=== PATIENT | male | born 1950 | race Asian ===

== ENCOUNTER 2019-07-06 20:27 | Inpatient (IN) | payer MEDICARE, OTHER ==
[~2019-07-06] VITALS: Ht 165.1 cm; Wt 67.6 kg
--- NOTE | 2019-07-06 20:45 | NUR ---
DAUGHTER: NELY GARCIA: [phone]
--- NOTE | 2019-07-06 20:57 | NUR ---
ARIELLE FROM HOME TO ER BED 7. AAOX3. IN RESPM DISTRESS, BREATHING RAPID AND SHALLOW. DESAT @ 70S ON RA. PER EMS REPORT, PT WAS BEING WALKED TO THE BATHROOM WHE HE HAD A SYNCOPAL EPISODE FOR 15SEC. PER REPORT, PT IS LEAVING WITH PEOPLE WHO ARE SICK WELL. PT IS PRESENTED TACHYPNEAC AND TACHYCARDIC. NOTED WITH COUGH. PLACED ON 02 VIA NC @ 6LPM. WAS AT BEDSIDE FOR EVAL. ORDERS RECEIVED, NOTED AND CARRIED OUT. IV LINE OBTAINED ON THE R AC 20G. BLOOD DRAWN, URINE COLLECTED BY STRAIGHT CATH, RECTAL TEMP 99.0. WILL CONTINUE TO MONITOR PT
[2019-07-06 20:58] LABS: APPEARANCE,URINE Slightly Cloudy (CLEAR); BILIRUBIN,URINE Negative (NEGATIVE); BLOOD, URINE Trace-intact Ery/uL (NEGATIVE); COLOR,URINE Yellow (YELLOW); KETONES,URINE Trace (NEGATIVE); LEUKOCYTE ESTERASE ,URINE Negative (NEGATIVE); NITRITE, URINE Negative (NEGATIVE); PROTEIN,URINE 100 mg/dl (NEGATIVE); UGLUCOSE 500 MG/DL mg/dL (NEGATIVE)
[2019-07-06] MEDS ORDERED: IV NS 0.9% 1,000 ML BAG IV ONE ×2 (21:00→22:00)
[2019-07-06] MEDS ORDERED: ACETAMINOPHEN 650 MG/SUPP.RECT RC ONE ×2 (21:00→21:17)
[2019-07-06] MEDS ORDERED: CEFTRIAXONE 1GM BAG (ER ONLY) 1 GM/50 ML PIGGYBACK IV ONE (21:00)
[2019-07-06] MEDS ORDERED: AZITHROMYCIN 500 MG in IV D5W 250 ML IV ONE (21:00)
[2019-07-06 21:08] LABS: CALCIUM, SERUM 8.6 mg/dL (8.5-10.1); CARBON DIOXIDE 19 mmol/L (21-32); CHLORIDE 98 mmol/L (98-107); CREATININE 1.9 mg/dL (0.6-1.3); GLUCOSE 251 mg/dL (74-106); POTASSIUM 4.4 mmol/L (3.5-5.1); SODIUM SERUM 137 mmol/L (136-145); UREA NITROGEN, BLOOD 44 mg/dL (7-18)
[2019-07-06 21:11] LABS: BACTERIA,URINE Moderate /HPF (None Seen); BASOPHILS # (AUTO) 0.1 /CMM (0.0-0.2); BASOPHILS % (AUTO) 0.4 % (0.0-2.0); HEMATOCRIT 53 % (39-51); HEMOGLOBIN 17.3 g/dL (13.5-17.5); LYMPHOCYTES # (AUTO) 0.5 /CMM (0.8-4.8); LYMPHOCYTES % (AUTO) 3.3 % (20.0-44.0); MEAN CORPUSCULAR HGB CONC 32 g/dl (31.0-36.0); MEAN CORPUSCULAR VOLUME 100 fL (80-96); MONOCYTES # (AUTO) 0.4 /CMM (0.1-1.30); MONOCYTES % (AUTO) 3.1 % (2.0-12.0); NEUTROPHILS # (AUTO) 13.3 /CMM (1.8-8.9); NEUTROPHILS % (AUTO) 93.2 % (43.0-81.0); PLATELET COUNT (AUTO) 165 /CMM (150-450); RBC,URINE 0-2 /HPF (0-2); RED BLOOD CELL COUNT(AUTO) 5.34 MIL/uL (4.5-6.0); SQUAMOUS EPITHELIAL CELL,UR Few /HPF (None Seen); WBC,URINE 0-2 /HPF (0-3); WHITE BLOOD COUNT (AUTO) 14.3 K/uL (4.3-11.0)
[2019-07-06 21:12] LABS: URINE AMORPHOUS URATE Many /HPF (None Seen)
[2019-07-06 21:14] LABS: ALANINE AMINOTRANSFERASE 84 U/L (12-78); ALBUMIN 2.6 g/dL (3.4-5.0); ALKALINE PHOSPHATASE 92 U/L (46-116); ASPARTATE AMINOTRANSFERASE 136 U/L (15-37); BILIRUBIN,DIRECT 0.5 mg/dL (0.0-0.2); BILIRUBIN,TOTAL 1.2 mg/dL (0.2-1.0); TOTAL PROTEIN, SERUM 6.8 g/dL (6.4-8.2)
[2019-07-06] MEDS ORDERED: AZITHROMYCIN 500 MG VIAL ONE (21:17)
[2019-07-06] MEDS ORDERED: CEFTRIAXONE 1GM BAG (ER ONLY) 50 ML IV ONE (21:17)
--- NOTE | 2019-07-06 21:40 | NUR ---
COVID AND FLU SWAB DONE. RT AT BEDSIDE FOR ABG
--- NOTE | 2019-07-06 21:57 | NUR ---
ICU 264
[2019-07-06] MEDS ORDERED: DILTIAZEM HCL 50 MG IV IV ONE (22:00)
[2019-07-06] MEDS ORDERED: PROPOFOL 20 ML IV ONE ×2 (22:14→22:16)
--- NOTE | 2019-07-06 22:30 | NUR ---
CHEST TUBE INSERTED BY DR.NEWMAN NEWTON 28. CHEST TUBE SET UP COMPLETE, NO LEAK NOTED.
--- NOTE | 2019-07-06 22:35 | NUR ---
ENTUBATION SET UP RT, RN AND MD AT BEDSIDE.
--- NOTE | 2019-07-06 22:36 | NUR ---
INTUBATION DONE BY . ET TUBE SIZE 8, 23 AT THE LIP, POSITIVE COLOR CHANGED.
--- NOTE | 2019-07-06 22:37 | NUR ---
VENT SETTING AC 22 VT500 100% +5PEEP
[2019-07-06] MEDS: PROPOFOL 100 ML IV PRN ×5 (22:40→23:55)
--- NOTE | 2019-07-06 22:45 | NUR ---
COMMERCIAL AIRPLANE PILOT AT BEDSIDE FOR STAT XRAY.
--- NOTE | 2019-07-06 22:48 | NUR ---
NELY SLOANP- DAUGHTER [phone] PLEASE CALL WITH UPDATES
[2019-07-06] MEDS ORDERED: PROPOFOL 100 ML ONE (22:49)
--- NOTE | 2019-07-06 23:04 | NUR ---
RT pt intubated post chest tube insertion due to desaturation. 8.0 ett, 23@lip. bilateral chest rise. vent settings: AC 22 500 100% +5
[2019-07-06] MEDS ORDERED: DILTIAZEM HCL 25 MG IV ONE (23:17)
[2019-07-06] MEDS ORDERED: PROPOFOL 200 MG/20 ML VIAL IV ONE ×2 (23:30)
[2019-07-06] MEDS ORDERED: MAGNESIUM HYDROXIDE 30 ML UDC PO PRN (23:30)
[2019-07-06] MEDS ORDERED: MAG HYDROX/AL HYDROX/SIMETH 30 ML UDC PO PRN (23:30)
[2019-07-06] MEDS ORDERED: Z GUARD REMEDY 2 OZ OINT TP PRN (23:30)
[2019-07-06] MEDS ORDERED: ONDANSETRON HCL/PF 4 MG/2 ML VIAL IVP PRN (23:30)
--- NOTE | 2019-07-06 23:50 | NUR ---
SPOKE WITH LISA MCKAY FOR UPDATES ABOUT HIS FATHER.
[2019-07-07] VITALS (45 sets, daily range): BP systolic 93–145; BP diastolic 43–96
--- NOTE | 2019-07-07 00:25 | NUR ---
SPOKE WITH SALINAS MOROCHO NP. PT IS ON PROPOFOL 25MCG/MIN AND BP IS 77/50. RECEIVED VERBAL ORDER TO GIVE NS 500ML IV BOLUS X 1.
[2019-07-07] MEDS ORDERED: IV NS 0.9% 500 ML BAG IV ONE (00:30)
[2019-07-07 00:54] LABS: ABG BASE EXCESS -5.8 mmol/L; ABG OXYGEN SATURATION 73.9 % (92.0-98.5); ABG PCO2 39.4 mmHg (35.0-45.0); ABG PO2 45.9 mmHg (75.0-100.0); AaDO2 627.7 mmHg; COHb 0.8 % (0.5-1.5); MetHb 0.7 % (0.0-1.5); O2Hb 72.8 % (94.0-97.0); SITE, ABG Left Brachial; VENT MODE, BG AC 22 500 100% +5
[2019-07-07 01:26] LABS: C-REACTIVE PROTEIN 26.5 mg/dL (0.0-0.9)
--- NOTE | 2019-07-07 01:27 | NUR ---
REPORT GIVEN TO EDUARD PALACIO FOR MIHIR.
--- NOTE | 2019-07-07 01:50 | NUR ---
ICU/MACHINE PLASTER MIXER PT CAME FROM ER WITH SEDATION AT 20MCG, VENT WITH SATURATION AT 69-70%, AND CHEST TUBE CLAMP.
--- NOTE | 2019-07-07 02:03 | NUR ---
PT TRANSPORTED TO UNIT ON [facility] WITH EMT, RT AND RN AT BEDSIDE W/ ACLS PROTOCOL. NAD NOTED DURING TRANSPORT.
[2019-07-07] MEDS: IV NS 0.9% 1,000 ML IV PRN ×3 (02:18→21:00)
--- NOTE | 2019-07-07 02:30 | NUR ---
ICU/MARKETING OFFICER CHEST TUBE IS NOT BUBBLING, CHEST TUBE CHANGED OUT BY CHARGE NURSE. WILL MONITOR THIS PT. SATURATION IS 78%
[2019-07-07 03:00] LABS: ABG BASE EXCESS -4.6 mmol/L; ABG OXYGEN SATURATION 76.5 % (92.0-98.5); ABG PCO2 36.8 mmHg (35.0-45.0); ABG PH 7.357 (7.350-7.450); ABG PO2 46.5 mmHg (75.0-100.0); AaDO2 629.7 mmHg; COHb 0.7 % (0.5-1.5); MetHb 0.5 % (0.0-1.5); O2Hb 75.6 % (94.0-97.0); SITE, ABG Left Brachial; VENT MODE, BG AC 22 500 100% +5
--- NOTE | 2019-07-07 03:00 | NUR ---
ICU/HOMELAND SECURITY PROGRAM SPECIALIST STAT ABG & CHEST XRAY DUE TO LOW SATURATION.
[2019-07-07] MEDS: PROPOFOL 100 ML IV PRN ×5 (03:56→23:01)
--- NOTE | 2019-07-07 04:30 | NUR ---
ICU/FINANCIAL PLANNING CONSULTANT ABG SENT TO [facility], CAME TO SEE PT. NO NEW ORDERS. ALSO MADE AWARE OF PT IS AFIB. GAVE ORDER FOR CARDIZEM X1 NOW.
[2019-07-07] MEDS ORDERED: DILTIAZEM HCL 50 MG IV IV ONE (05:00)
[2019-07-07 05:09] LABS: BASOPHILS % (AUTO) 0.1 % (0.0-2.0); HEMATOCRIT 47 % (39-51); HEMOGLOBIN 15.7 g/dL (13.5-17.5); LYMPHOCYTES # (AUTO) 0.5 /CMM (0.8-4.8); LYMPHOCYTES % (AUTO) 4.8 % (20.0-44.0); MEAN CORPUSCULAR HGB CONC 33 g/dl (31.0-36.0); MEAN CORPUSCULAR VOLUME 99 fL (80-96); MONOCYTES # (AUTO) 0.4 /CMM (0.1-1.30); MONOCYTES % (AUTO) 3.3 % (2.0-12.0); NEUTROPHILS % (AUTO) 91.8 % (43.0-81.0); PLATELET COUNT (AUTO) 115 /CMM (150-450); RED BLOOD CELL COUNT(AUTO) 4.77 MIL/uL (4.5-6.0); WHITE BLOOD COUNT (AUTO) 10.9 K/uL (4.3-11.0)
--- NOTE | 2019-07-07 05:10 | NUR ---
ICU/FOOD PRODUCTION MACHINE OPERATOR CARDIZEM GIVEN, WILL MONITOR THIS PT. HEART RATE IS 140'S TO 150'S.
--- NOTE | 2019-07-07 05:34 | NUR ---
ICU/CEILING INSULATION BLOWER PT IS VERY ALERT ON 30MCG OF SEDATION, AM LABS WERE DONE, AND EKG DONE TOO
[2019-07-07 05:39] LABS: CALCIUM, SERUM 7.7 mg/dL (8.5-10.1); MAGNESIUM 2.7 mg/dL (1.8-2.4); PHOSPHORUS 4.8 mg/dL (2.5-4.9); POTASSIUM 4.1 mmol/L (3.5-5.1)
[2019-07-07 05:46] LABS: THYROID STIMULATING HORMONE 0.336 uIU/mL (0.358-3.74)
--- NOTE | 2019-07-07 07:20 | NUR ---
RN INITIAL NOTES RECEIVED PT INTUBATED, ON VENT. HOB ELEVATED. 02 SAT ON LOW 70-80S. FIO2 100%. UNCONTROLLED A.FIB ON MONITOR, 140S. SALINAS MOROCHO NP AWARE. PT SEDATED, ON DIPRIVAN AT 35MCG/KG/MIN, MINIMAL AGITATION NOTED, INCREASED TO 40MCG/KG/MIN. IV LINES IN PLACE. IVF INFUSING. LEFT CHEST TUBE IN PLACE. NO DRAINAGE NOTED AT THIS TIME. FC IN PLACE. NO HEMATURIA NOTED. REPOSITIONED. WILL CONTINUE TO MONITOR.
--- NOTE | 2019-07-07 07:50 | NUR ---
icu/gallery or museum attendant sent to lab the covid-19 test, resp. culture, and influenza.
[2019-07-07 08:35] LABS: ABG BASE EXCESS -7.6 mmol/L; ABG OXYGEN SATURATION 83.4 % (92.0-98.5); ABG PCO2 37.4 mmHg (35.0-45.0); ABG PH 7.302 (7.350-7.450); ABG PO2 57.5 mmHg (75.0-100.0); AaDO2 618.1 mmHg; COHb 0.4 % (0.5-1.5); MetHb 0.4 % (0.0-1.5); O2Hb 82.7 % (94.0-97.0); PEEP,BG 5 cm H2O; SITE, ABG Left Brachial; VENT MODE, BG AC 22 500 100% +5
[2019-07-07] MEDS ORDERED: MONT10TA22 PO (09:03)
[2019-07-07] MEDS ORDERED: ASPI-1152 PO (09:03)
[2019-07-07] MEDS ORDERED: OLOP5DRO15 OP (09:03)
[2019-07-07] MEDS ORDERED: EMPA1TAB24 PO (09:03)
[2019-07-07] MEDS ORDERED: AMLO5TAB9 PO (09:03)
[2019-07-07] MEDS ORDERED: LOSA100T31 PO (09:03)
[2019-07-07] MEDS ORDERED: HYDR12.55 PO (09:03)
[2019-07-07] MEDS ORDERED: ICOS1CAP PO (09:03)
[2019-07-07] MEDS ORDERED: ATOR10TA PO (09:03)
[2019-07-07] MEDS ORDERED: CHOL200059 PO (09:03)
[2019-07-07] MEDS ORDERED: LEVO5TAB13 PO (09:03)
--- NOTE | 2019-07-07 11:00 | NUR ---
RN NOTES 1030 SEEN AND EXAMINED BY DR GARNICA. AWARE OF LATEST LAB VALUES, ABG AND CXR RESULT. PT HAS LEFT CHEST TUBE, SUBCUTANEOUS EMPHYSEMA PRESENT. PT SEDATED, ON DIPRIVAN. ORDERED VENT SETTINGS CHANGE. WILL CLOSELY MONITOR 1100 SEEN AND EXAMINED BY DR DICKERSON. AWARE OF LAB VALUES AND IMAGING STUDIES. PT REMAINS UNCONTROLLED A.FIB ON MONITOR. HAS DIGOXIN ORDER. IVF INFUSING. WILL CLOSELY MONITOR
[2019-07-07] MEDS: DIGOXIN INJ 0.5 MG/2 ML AMPUL IV SCH ×2 (11:57→17:28)
[2019-07-07 12:50] LABS: ABG OXYGEN SATURATION 93.4 % (92.0-98.5); ABG PCO2 41.2 mmHg (35.0-45.0); ABG PH 7.287 (7.350-7.450); ABG PO2 81.5 mmHg (75.0-100.0); AaDO2 590.3 mmHg; COHb 0.2 % (0.5-1.5); MetHb 0.5 % (0.0-1.5); O2Hb 92.7 % (94.0-97.0); PEEP,BG 8 cm H2O; SITE, ABG Left Brachial; VT, ABG 500 mL
[2019-07-07] MEDS: HYDROXYCHLOROQUINE 200 MG TABLET PO SCH ×2 (13:17→16:45)
--- NOTE | 2019-07-07 18:32 | NUR ---
RN CLOSING NOTES PT REMAINS INTUBATED, ON VENT. NO RESPIRATORY DISTRESS NOTED. NO SOB NOTED. NO SIGNS OF PAIN NOTED. PT ON DIPRIVAN, KEPT SEDATED. IVF INFUSING. FC IN PLACE. KEPT CLEAN AND DRY. REPOSITIONED Q2. BLE ELEVATED. WILL ENDORSE FOR CONTINUITY OF CARE
--- NOTE | 2019-07-07 19:45 | NUR ---
ICU/WIRE MESH KNITTER REPORT RECEIVED FROM THE TO DAY NURSE. SEE FLOWSHEET FOR ASSESSMENT, NO SKIN ISSUES TO BE ADDRESSED. PT IS ON SEDATION AT THIS TIME DUE TO INTUBATION. PT IS ORALLY INTUBATED WITH SATURATION AT 100%. WILL MONITOR THIS PT. PT TURNED AND REPOSITIONED FOR COMFORT AND CARE.PT HAS A CHEST TUBE WITH WATER SEAL, TAPE IS SECURE.
--- NOTE | 2019-07-07 20:02 | NUR ---
RT NOTE PT RECEIVED INTUBATED 8.0 ON MECHANICAL VENTILATION. 23 AT [facility]. AMBU BAG @ BEDSIDE. SX DONE, MINIMAL SECRETIONS, AIRWAY SECURED AND PATENT. ALARMS ON AND AUDIBLE. NO DISTRESS NOTED. WILL MONITOR T/O SHIFT. CONT. PULSE OX CONNECTED. Addendum: 07/07/19 at 2002 by ZAINA CHAN RT Amended: Links added.
[2019-07-07] MEDS: CEFTRIAXONE 1 G in IV D5W 50 ML IV SCH (20:55)
[2019-07-07] MEDS: AZITHROMYCIN 500 MG in IV D5W 250 ML IV SCH (21:46)
--- NOTE | 2019-07-07 22:30 | NUR ---
ICU/EMERGENCY RESPONSE OFFICER SON KAIDEN ZELAYA [phone] CALLED GAVE UPDATE.
[2019-07-08] VITALS (63 sets, daily range): BP systolic 78–147; BP diastolic 54–79
--- NOTE | 2019-07-08 00:45 | NUR ---
ICU/AIRCRAFT CLEANER PT WAS GIVEN LAST DOSE OF DIGOXIN, BY CHARGE NURSE. WILL MONITOR THIS PT AND HIS BLOOD PRESSURE
[2019-07-08] MEDS: DIGOXIN INJ 0.5 MG/2 ML AMPUL IV SCH (00:58)
--- NOTE | 2019-07-08 04:00 | NUR ---
ICU/SITECORE DEVELOPER AM LABS WERE DRAWN.
[2019-07-08 04:26] LABS: BASOPHILS % (AUTO) 0.1 % (0.0-2.0); HEMATOCRIT 47 % (39-51); HEMOGLOBIN 15.2 g/dL (13.5-17.5); LYMPHOCYTES # (AUTO) 0.3 /CMM (0.8-4.8); LYMPHOCYTES % (AUTO) 2.5 % (20.0-44.0); MEAN CORPUSCULAR HGB CONC 33 g/dl (31.0-36.0); MEAN CORPUSCULAR VOLUME 99 fL (80-96); MONOCYTES # (AUTO) 0.5 /CMM (0.1-1.30); MONOCYTES % (AUTO) 3.8 % (2.0-12.0); NEUTROPHILS # (AUTO) 11.2 /CMM (1.8-8.9); NEUTROPHILS % (AUTO) 93.6 % (43.0-81.0); PLATELET COUNT (AUTO) 106 /CMM (150-450); RED BLOOD CELL COUNT(AUTO) 4.72 MIL/uL (4.5-6.0)
[2019-07-08 04:42] LABS: CALCIUM, SERUM 7.2 mg/dL (8.5-10.1); CREATININE 0.9 mg/dL (0.6-1.3); POTASSIUM 4.9 mmol/L (3.5-5.1)
[2019-07-08] MEDS: PROPOFOL 100 ML IV PRN ×4 (04:49→20:54)
--- NOTE | 2019-07-08 07:58 | NUR ---
TRACK LAYER NOTE RECEIVED PATIENT WITH ETT TUBE TO VENT SETTING ORDERED . PT IS ON SEDATION AT THIS TIME DUE TO INTUBATION. PT IS ORALLY INTUBATED WITH SATURATION AT 100%. WILL MONITOR THIS PT. PT TURNED AND REPOSITIONED FOR COMFORT AND CARE.PT HAS A CHEST TUBE WITH WATER SEAL, TAPE IS SECURE. WITH LANE CATH TO GRAVITY WITH YELLOW COLOR URINE, ON TELE MONITOT ST HR ST 117,ON IVF ORDERED, WILL MONITOR CLOSELY
[2019-07-08] MEDS: HYDROXYCHLOROQUINE 200 MG TABLET PO SCH (08:10)
[2019-07-08 09:06] LABS: ABG OXYGEN SATURATION 92.6 % (92.0-98.5); ABG PCO2 50.9 mmHg (35.0-45.0); ABG PH 7.231 (7.350-7.450); ABG PO2 74.6 mmHg (75.0-100.0); AaDO2 333.5 mmHg; COHb 0.6 % (0.5-1.5); MetHb 0.5 % (0.0-1.5); O2Hb 91.6 % (94.0-97.0); PEEP,BG 10 cm H2O; SITE, ABG Left Brachial; VT, ABG 500 mL
[2019-07-08] MEDS: IV NS 0.9% 1,000 ML IV PRN ×2 (09:46→20:02)
--- NOTE | 2019-07-08 10:53 | NUR ---
ASSISTANT DIRECTOR NOTE T 103.5 DR REDDY AWARE OK YO GIVE TYLENOL STARTED ON COOLING MEASURE
--- NOTE | 2019-07-08 11:20 | NUR ---
TACK MAKER NOTE DR GARNICA NOTIFIED THAT EARLIER WAS SAT 82% OK TO CHANGE FIO2 AT 80%
--- NOTE | 2019-07-08 13:17 | NUR ---
BEREAVEMENT PROGRAM COORDINATOR NOTE PER DR GARNICA ADJUSTED ETT TUBE 4 CM, DONE BY RT AND NOW SETTING IS ETT 8/27CM AND PLACED ON 70 % FIO2,SAT 94% , WILL MONITOR
--- NOTE | 2019-07-08 16:45 | NUR ---
INTERNATIONAL AFFAIRS VICE PRESIDENT NOTE CALLED TO DR GARNICA NOTIFIED THAT BP 84/45 PEEP 10 OK TO START LEVOPHED DRIP AND OK TO INSERT PICC LINE . SPOKE WITH SON KAIDEN OK TO INSERT PICC LINE ,SPOKE WITH NURSING ENTRY LEVEL WEB DEVELOPER STATED THAT WILL CALL PICC LINE TEAM, WILL F\U
--- NOTE | 2019-07-08 17:14 | NUR ---
VP PACKAGING NOTE CALLED X2 FOR LEVOPHED TO BRING SPOKE WITH MARKUS STATED THAT WILL BRING SOON
[2019-07-08] MEDS: NOREPINEPHRINE 8 MG in IV NS 0.9% 242 ML IV PRN (17:35)
--- NOTE | 2019-07-08 18:03 | NUR ---
MANAGER PACKAGING NOTE GALE STARTED ORDERED PER PROTOCOL . WILL MONITOR BP Addendum: 07/08/19 at 1848 by BRIJESH LEON RN SPOKE WITH NURSING MILK AND CREAM GRADER STATED THAT LEFT A MESSAGE FOR PICC LINE NURSE WILL F\U
[2019-07-08] MEDS: CEFTRIAXONE 1 G in IV D5W 50 ML IV SCH (20:03)
--- NOTE | 2019-07-08 20:47 | NUR ---
MANAGER BUSINESS INFORMATION NOTES: COVID 19 RESULTS CHARGE NURSE ED RECEIVED CALL FROM LAB REGARDING POSITIVE COVID-19 TEST RESULTS. LOYD FROM INFECTION CONTROL NOTIFIED, SALINAS GALICIA NOTIFIED, FAMILY MEMBER KAIDEN NOTIFIED AND MADE AWARE. WILL CONTINUE TO CLOSELY MONITOR THE PATIENT
--- NOTE | 2019-07-08 20:50 | NUR ---
DAUGHTER ENLY [phone]
[2019-07-08] MEDS: AZITHROMYCIN 500 MG in IV D5W 250 ML IV SCH (21:15)
[2019-07-09] VITALS (68 sets, daily range): BP systolic 65–198; BP diastolic 45–150
[2019-07-09] MEDS: ACETAMINOPHEN 650 MG/20.3 ML UDC NG PRN (03:00)
[2019-07-09 05:18] LABS: BASOPHILS % (AUTO) 0.1 % (0.0-2.0); HEMATOCRIT 47 % (39-51); HEMOGLOBIN 15.2 g/dL (13.5-17.5); LYMPHOCYTES # (AUTO) 0.4 /CMM (0.8-4.8); LYMPHOCYTES % (AUTO) 2.4 % (20.0-44.0); MEAN CORPUSCULAR HGB CONC 32 g/dl (31.0-36.0); MEAN CORPUSCULAR VOLUME 100 fL (80-96); MONOCYTES # (AUTO) 0.8 /CMM (0.1-1.30); MONOCYTES % (AUTO) 4.9 % (2.0-12.0); NEUTROPHILS # (AUTO) 16.1 /CMM (1.8-8.9); NEUTROPHILS % (AUTO) 92.6 % (43.0-81.0); PLATELET COUNT (AUTO) 89 /CMM (150-450); RED BLOOD CELL COUNT(AUTO) 4.72 MIL/uL (4.5-6.0); WHITE BLOOD COUNT (AUTO) 17.4 K/uL (4.3-11.0)
[2019-07-09 05:25] LABS: CALCIUM, SERUM 7.3 mg/dL (8.5-10.1); CREATININE 1.5 mg/dL (0.6-1.3); POTASSIUM 5.6 mmol/L (3.5-5.1)
[2019-07-09 05:53] LABS: LYMPHOCYTES % (MANUAL) 3 % (16-48); MONOCYTES % (MANUAL) 5 % (0-11.0); NEUTROPHILS % (MANUAL) 92 (42-76)
--- NOTE | 2019-07-09 06:30 | NUR ---
STOCK CLIPPER CLOSING NOTES PATIENT RESTING IN BED, REMAINS SEDATED ON DIPRIVAN DRIP, CURRENTLY @ 25MCG/KG/MIN. LEVOPHED DRIP CURRENTLY RUNNING @ 0.1MCG/KG/MIN VIA PERIPHERAL IV, WHICH REMAINS PATENT AND INTACT, NO S/S OF INFILTRATION OR PHLEBITIS, PENDING PICC PLACEMENT. WILL ENDORSE THE PATIENT TO THE AM SHIFT NURSE FOR CONTINUITY OF CARE
[2019-07-09] MEDS: PROPOFOL 100 ML IV PRN ×2 (06:34→15:20)
--- NOTE | 2019-07-09 07:15 | NUR ---
RN INITIAL NOTES RECEIVED PT INTUBATED, ON VENT. NO RESPIRATORY DISTRESS NOTED. NO SOB NOTED. NO SIGNS OF PAIN NOTED. OG TUBE CLAMPED. PT SEDATED, ON DIPRIVAN AT 20MCG/KG/MIN. PT ON LEVO AT 0.1MCG/KG/MIN. WILL TITRATE ACCORDINGLY. FC IN PLACE. NO HEMATURIA NOTED. BLE ELEVATED. FOR PICC INSERTION. WILL CLOSELY MONITOR
[2019-07-09] MEDS: IV NS 0.9% 1,000 ML IV PRN ×3 (07:49→15:58)
--- NOTE | 2019-07-09 08:20 | NUR ---
WOUND CARE CONSULT: RECEIVED CONSULT FOR SACRAL AND BUTTOCK DISCOLORATION WITH BLISTERING TO BUTTOCKS. REVIEWED PHOTO AND NURSING DOCUMENTATION. RECOMMENDATIONS MADE BASED ON PHOTO DOCUMENTATION AND DISCUSSED WITH NURSING STAFF. FIRST STEP LOW AIRLOSS MATTRESS ON ORDER. WILL SEE PRN. NANCE IN AGREEMENT WITH PLAN OF CARE. Addendum: 07/09/19 at 0829 by ALCIDES MCKENZIE WNDNU CURRENT KAMARI SCORE IS 12.
[2019-07-09 09:00] LABS: ABG BASE EXCESS -7.3 mmol/L; ABG OXYGEN SATURATION 96.6 % (92.0-98.5); ABG PCO2 49.4 mmHg (35.0-45.0); ABG PH 7.234 (7.350-7.450); ABG PO2 96.5 mmHg (75.0-100.0); AaDO2 349.5 mmHg; COHb 0.6 % (0.5-1.5); MetHb 0.5 % (0.0-1.5); O2Hb 95.5 % (94.0-97.0); SITE, ABG Left Radial; VENT MODE, BG AC 22 500 70% +10
[2019-07-09] MEDS: HYDROXYCHLOROQUINE 200 MG TABLET PO SCH (09:08)
--- NOTE | 2019-07-09 09:27 | NUR ---
RT NOTE PT RECEIVED ON MECHANICAL VENTILATION INTUBATED WITH ET TUBE. ALARMS ON AND AUDIBLE. VENT PLUGGED TO RED OUTLET. NO DISTRESS NOTED AT THIS TIME. WILL MONITOR T/O SHIFT. Addendum: 07/09/19 at 0928 by ANTHONY OROZCO RT Amended: Links added.
[2019-07-09] MEDS: NOREPINEPHRINE 8 MG in IV NS 0.9% 242 ML IV PRN ×3 (10:43→19:31)
[2019-07-09] MEDS ORDERED: diphenhydrAMINE HCL 50 MG/ML VIAL IV ONE (11:00)
[2019-07-09] MEDS ORDERED: ACETAMINOPHEN 650 MG/20.3 ML UDC GT ONE (11:00)
[2019-07-09] MEDS ORDERED: TOCILIZUMAB 400 MG in IV NS 0.9% 80 ML IV ONE (11:40)
[2019-07-09] MEDS ORDERED: SODIUM POLYSTYRENE SULFONATE 15 G/60 ML BOTTLE PO ONE (12:00)
[2019-07-09] MEDS ORDERED: FUROSEMIDE 100 MG/10 ML VIAL IV ONE (12:00)
--- NOTE | 2019-07-09 12:30 | NUR ---
RN NOTES SEEN AND EXAMINED BY ESTELLA YANEZ. BEEF BREAKER FOR ID CONSULT. REVIEWED CURRENT LAB VALUES AND MEDS. PER KG SORIA TYLENOL, BENADRYL AND ACTEMRA X1. FURTHER BLOOD WORKS ORDERED. WILL RE-EVALUATE TETE.
[2019-07-09 12:34] LABS: C-REACTIVE PROTEIN 24.6 mg/dL (0.0-0.9)
[2019-07-09 12:35] LABS: BILIRUBIN,DIRECT 0.2 mg/dL (0.0-0.2); BILIRUBIN,TOTAL 0.5 mg/dL (0.2-1.0)
[2019-07-09 12:36] LABS: ALBUMIN 1.9 g/dL (3.4-5.0); TOTAL PROTEIN, SERUM 5.4 g/dL (6.4-8.2)
[2019-07-09] MEDS: methylPREDNISolone SOD SUCC 40 MG/ML VIAL IV SCH (12:42)
[2019-07-09 17:26] LABS: CALCIUM, SERUM 6.9 mg/dL (8.5-10.1); CREATININE 2.3 mg/dL (0.6-1.3)
[2019-07-09 17:34] LABS: APPEARANCE,URINE SL CLOUDY (CLEAR); BILIRUBIN,URINE SMALL (NEGATIVE); BLOOD, URINE LARGE Ery/uL (NEGATIVE); COLOR,URINE YELLOW (YELLOW); KETONES,URINE NEGATIVE (NEGATIVE); LEUKOCYTE ESTERASE ,URINE NEGATIVE (NEGATIVE); NITRITE, URINE NEGATIVE (NEGATIVE); PH,URINE 5.5 (5.0-8.0); PROTEIN,URINE 100 mg/dl (NEGATIVE); UGLUCOSE 250 MG/DL mg/dL (NEGATIVE)
[2019-07-09 17:36] LABS: CREATININE, URINE 134.9 MG/DL (30.0-125.0); URINE TOTAL PROTEIN 239.8 mg/dL (0-11.9)
[2019-07-09 18:03] LABS: HYALINE CASTS, URINE Few /LPF (None Seen); SQUAMOUS EPITHELIAL CELL,UR 0-2 /HPF (None Seen)
[2019-07-09 18:04] LABS: URINE AMORPHOUS URATE Many /HPF (None Seen)
[2019-07-09 18:05] LABS: BACTERIA,URINE 2+ /HPF (None Seen)
[2019-07-09 18:26] LABS: EOSINOPHIL,URINE None Seen
--- NOTE | 2019-07-09 18:34 | NUR ---
RN CLOSING NOTES PT REMAINS INTUBATED. NO RESPIRATORY DISTRESS NOTED. NO SOB NOTED. NO SIGNS OF PAIN NOTED. REMAINS SEDATED. ON LEVO, TITRATED ACCORDINGLY. FC IN PLACE. KEPT CLEAN AND DRY. BLE ELEVATED. KEPT COMFORTABLE. WILL ENDORSE FOR CONTINUITY OF CARE
--- NOTE | 2019-07-09 19:34 | NUR ---
RT NOTES PT RECEIVED ORALLY INTUBATED ON [facility] VENT ON CHARTED SETTINGS. NO SIGNS OF SOB NOTED. AIRWAY PATENT AND SECURED. GENETIC ENGINEER DONE. PT SUCTIONED. ALARMS SET AND AUDIBLE. AMBUBAG AT BEDSIDE. VENT PLUGGED TO RED OUTLET. WILL CONT TO MONITOR. Addendum: 07/09/19 at 2142 by JUANA TAMAYO RT Amended: Links added.
--- NOTE | 2019-07-09 19:50 | NUR ---
STOPER NOTES BP LOW, TITRATING UP TOWARD MAX DOSE OF LEVOPHED. SALINAS MOROCHO FAMILY SUPPORT WORKER NOTIFIED, WITH ORDER FOR SECOND PRESSOR IF NEEDED, NEOSYNEPHRINE DRIP
[2019-07-09] MEDS: CEFTRIAXONE 1 G in IV D5W 50 ML IV SCH (20:11)
[2019-07-09] MEDS ORDERED: NOREPINEPHRINE 32 MG in IV NS 0.9% 218 ML IV PRN (20:30)
[2019-07-09] MEDS: AZITHROMYCIN 500 MG in IV D5W 250 ML IV SCH (20:37)
--- NOTE | 2019-07-09 21:45 | NUR ---
EXHAUST AND MUFFLER FITTER NOTES WHEN STARTING NEOSYNEPHRINE DRIP, NOTED WITH CRACK IN IV TUBING, PATIENT NOT RECEIVING FULL DOSE OF PRESSOR DUE TO CRACK IN TUBING. TUBING REPLACE, WILL TITRATE ACCORDINGLY
[2019-07-10] VITALS (85 sets, daily range): BP systolic 71–132; BP diastolic 48–85
[2019-07-10] MEDS: IV NS 0.9% 1,000 ML IV PRN ×2 (01:32→18:51)
[2019-07-10] MEDS: NOREPINEPHRINE 8 MG in IV NS 0.9% 242 ML IV PRN (02:55)
--- NOTE | 2019-07-10 04:00 | NUR ---
BLUEPRINTING MACHINE OPERATOR NOTES AFTER BED BATH, HR NOTED TO SUSTAIN ABOVE 130s. START TITRATION OF LEVOPHED DRIP UNTIL TURNED OFF, AND START NEOSYNEPHRINE DRIP FOR BP SUPPORT
[2019-07-10 04:27] LABS: BASOPHILS % (AUTO) 0.1 % (0.0-2.0); HEMATOCRIT 44 % (39-51); HEMOGLOBIN 14.3 g/dL (13.5-17.5); LYMPHOCYTES # (AUTO) 0.5 /CMM (0.8-4.8); LYMPHOCYTES % (AUTO) 2.5 % (20.0-44.0); MEAN CORPUSCULAR HGB CONC 32 g/dl (31.0-36.0); MEAN CORPUSCULAR VOLUME 101 fL (80-96); MONOCYTES # (AUTO) 0.6 /CMM (0.1-1.30); MONOCYTES % (AUTO) 3.4 % (2.0-12.0); NEUTROPHILS # (AUTO) 17.2 /CMM (1.8-8.9); PLATELET COUNT (AUTO) 99 /CMM (150-450); RED BLOOD CELL COUNT(AUTO) 4.37 MIL/uL (4.5-6.0); WHITE BLOOD COUNT (AUTO) 18.3 K/uL (4.3-11.0)
[2019-07-10 04:35] LABS: CALCIUM, SERUM 6.7 mg/dL (8.5-10.1); CARBON DIOXIDE 21 mmol/L (21-32); CHLORIDE 115 mmol/L (98-107); CREATININE 2.3 mg/dL (0.6-1.3); GLUCOSE 257 mg/dL (74-106); POTASSIUM 4.5 mmol/L (3.5-5.1); SODIUM SERUM 148 mmol/L (136-145); UREA NITROGEN, BLOOD 79 mg/dL (7-18)
[2019-07-10] MEDS: PROPOFOL 100 ML IV PRN ×2 (04:40→14:47)
[2019-07-10 05:11] LABS: BAND % (MANUAL) 3 % (0.0-5.0); LYMPHOCYTES % (MANUAL) 1 % (16-48); MONOCYTES % (MANUAL) 2 % (0-11.0); NEUTROPHILS % (MANUAL) 94 (42-76)
[2019-07-10] MEDS: PHENYLEPHRINE 100 MG in IV NS 0.9% 240 ML IV PRN ×2 (05:12→16:29)
--- NOTE | 2019-07-10 06:45 | NUR ---
CASINO CAGE SUPERVISOR CLOSING NOTES PATIENT RESTING IN BED, REMAINS SEDATED ON DIPRIVAN DRIP, CURRENTLY @ 10 MCG, NEOSYNEPHRINE DRIP TITRATED TO 2.0 MCG/KG/MIN
--- NOTE | 2019-07-10 08:00 | NUR ---
ICU/RN INITIAL NOTES,AM RECEIVED REPORT FROM NIGHT NURSE. PT INTUBATED AND SEDATED ETT 8.0 AND 27CM AT THE LIP. PT ON VENT SETTINGS ORDERED BY MD, NO ACUTE DISTRESS NOTED. PT ON DIPRIVAN FOR SEDATION, TITRATING PER PROTOCOL. PT ON TELE, SINUS TACH. CHEST TUBE IN PLACE, MINIMAL DRAINAGE NOTED DURING NIGHT. BILATERAL SOFT WRIST RESTRAINTS IN PLACE, ASSESSED PER PROTOCOL. PT ON ROBYN AT 2MCG/KG, TOLERATING WELL, SBP>90. RIGHT UPPER ARM PICC LINE PATENT AND INTACT, NO S/S OF INFECTION OR INFILTRATION NOTED. IV INFUSING ORDERED. ALL NEEDS WILL BE ATTENDED TO, SAFETY MEASURES TAKEN, BED IN LOW POSITION, SIDE RAILS UP, CALL LIGHT WITHIN REACH. WILL CONTINUE CARE.
[2019-07-10] MEDS: HYDROXYCHLOROQUINE 200 MG TABLET PO SCH (08:20)
[2019-07-10 09:01] LABS: ABG BASE EXCESS -9.5 mmol/L; ABG OXYGEN SATURATION 97.3 % (92.0-98.5); ABG PCO2 42.1 mmHg (35.0-45.0); ABG PH 7.238 (7.350-7.450); ABG PO2 120.6 mmHg (75.0-100.0); AaDO2 260.9 mmHg; COHb 0.4 % (0.5-1.5); MetHb 0.4 % (0.0-1.5); O2Hb 96.5 % (94.0-97.0); PEEP,BG 10 cm H2O; SITE, ABG Left Radial; VT, ABG 500 mL
[2019-07-10] MEDS ORDERED: DIGOXIN INJ 0.5 MG/2 ML AMPUL IV ONE (09:30)
--- NOTE | 2019-07-10 09:30 | NUR ---
ICU/RN: SEDATION VACATION SEDATION VACATION DONE, PT OPENS EYES, FOLLOWS SOME SIMPLE COMMANDS. WILL RESUME PER PROTOCOL.
[2019-07-10] MEDS: methylPREDNISolone SOD SUCC 40 MG/ML VIAL IV SCH (10:22)
[2019-07-10] MEDS ORDERED: MEROPENEM 500 MG in IV NS 0.9% 50 ML IV SCH (10:30)
[2019-07-10] MEDS ORDERED: MEROPENEM 1 G in IV NS 0.9% 100 ML IV ONE (11:00)
--- NOTE | 2019-07-10 16:30 | NUR ---
ICU/RN: UPDATES GIVEN TO FAMILY. BED BATH GIVEN, LINENS CHANGED. WOUND CARE RENDERED. PT TURNED AND REPOSITIONED.
--- NOTE | 2019-07-10 19:02 | NUR ---
ICU/RN: ENDING NOTES,AM REPORT WILL BE ENDORSED TO NIGHT NURSE FOR MIHIR. PT ON VENT SETTINGS ORDERED, NO DISTRESS. ROBYN AND DIP INFUSING ORDERED. ALL NEEDS ATTENDED TO, SAFETY MEASURES TAKEN, BED IN LOW POSITION, SIDE RAILS UP, CALL LIGHT WITHIN REACH. BILATERAL SOFT WRIST RESTRAINTS IN PLACE, ASSESSED PER PROTOCOL.
--- NOTE | 2019-07-10 19:30 | NUR ---
OTOLARYNGOLOGY REP INITIAL SHIFT NOTES RECEIVED PATIENT IN BED, SEDATED ON DIPRIVAN DRIP. PATIENT ORALLY INTUBATED, ON MECHANICAL VENTILATION VIA ETT, SETTINGS PRESCRIBED BY MD, TOELRATING WELL, NO S/S OF RESPIRATORY DISTRESS. LEFT ANTERIOR CHEST TUBE IN PLACE, NOTED WITH LEAK (PRESENT SINCE PATIENT ARRIVED FROM ER), CONNECTED TO -20CM H20 SUCTION, WITH MINIMAL AMOUNTS OF SEROSANGUINEOUS OUTPUT. ELIF PICC PATENT AND INTACT, FLUSHED WITH NS, NO S/S OF INFILTRATION OR PHLEBITIS. LANE CATHETER PATENT AND INTACT, DRAINING GREENISH/TEA COLORED URINE WITH SEDIMENTS AND MINIMAL/FEW BLOOD CLOTS. BEDSIDE TELEMETRY MONITORING READS SINUS TACHYCARDIA, HR 115BPM AT THIS TIME. BED IN LOWEST AND LOCKED POSITION, ISOLATION PRECAUTIONS OBSERVED. CONTINUE TO MONITOR CLOSELY
[2019-07-10] MEDS: AZITHROMYCIN 500 MG in IV D5W 250 ML IV SCH (21:02)
--- NOTE | 2019-07-10 21:45 | NUR ---
SWITCH ADJUSTER NOTES RECEIVED CALL FROM PATIENT'S SON ASHLY, UPDATED REGARDING CURRENT CONDITION AND PLAN OF CARE, WITH VERBALIZATION OF UNDERSTANDING
[2019-07-10] MEDS: MEROPENEM 1 G in IV NS 0.9% 100 ML IV SCH (22:04)
[2019-07-11] VITALS (96 sets, daily range): BP systolic 85–150; BP diastolic 53–97
[2019-07-11] MEDS: PROPOFOL 100 ML IV PRN ×2 (03:01→14:24)
[2019-07-11 03:46] LABS: OCCULT BLOOD STOOL POSITIVE (NEGATIVE)
--- NOTE | 2019-07-11 04:00 | NUR ---
DIRECTORY CLERK NOTES FULL BED BATH RENDERED, CHEST TUBE DRESSING CHANGED, PATIENT TOLERATED WELL. WILL CONTINUE TO CLOSELY MONITOR
[2019-07-11 04:55] LABS: ALBUMIN 1.6 g/dL (3.4-5.0); BASOPHILS % (AUTO) 0.2 % (0.0-2.0); BILIRUBIN,TOTAL 0.6 mg/dL (0.2-1.0); CREATININE 1.7 mg/dL (0.6-1.3); HEMATOCRIT 42 % (39-51); HEMOGLOBIN 13.7 g/dL (13.5-17.5); LYMPHOCYTES # (AUTO) 0.4 /CMM (0.8-4.8); LYMPHOCYTES % (AUTO) 1.8 % (20.0-44.0); MEAN CORPUSCULAR HGB CONC 33 g/dl (31.0-36.0); MEAN CORPUSCULAR VOLUME 100 fL (80-96); MONOCYTES # (AUTO) 1.2 /CMM (0.1-1.30); MONOCYTES % (AUTO) 4.9 % (2.0-12.0); NEUTROPHILS # (AUTO) 23.1 /CMM (1.8-8.9); NEUTROPHILS % (AUTO) 93.1 % (43.0-81.0); PHOSPHORUS 2.7 mg/dL (2.5-4.9); PLATELET COUNT (AUTO) 93 /CMM (150-450); POTASSIUM 4.6 mmol/L (3.5-5.1); RED BLOOD CELL COUNT(AUTO) 4.18 MIL/uL (4.5-6.0); WHITE BLOOD COUNT (AUTO) 24.8 K/uL (4.3-11.0)
[2019-07-11] MEDS: PHENYLEPHRINE 100 MG in IV NS 0.9% 240 ML IV PRN ×2 (05:04→22:33)
[2019-07-11 05:18] LABS: CALCIUM, SERUM 6.9 mg/dL (8.5-10.1)
--- NOTE | 2019-07-11 06:00 | NUR ---
TRADE RECRUITER NOTES CHEST TUBE OUTPUT 60 ML SEROSANGUINEOUS FLUID
[2019-07-11 06:03] LABS: LYMPHOCYTES % (MANUAL) 1 % (16-48); MONOCYTES % (MANUAL) 2 % (0-11.0); NEUTROPHILS % (MANUAL) 97 (42-76)
[2019-07-11 08:38] LABS: ABG BASE EXCESS -8.3 mmol/L; ABG PCO2 30.9 mmHg (35.0-45.0); ABG PH 7.337 (7.350-7.450); ABG PO2 94.6 mmHg (75.0-100.0); AaDO2 191.1 mmHg; COHb 0.4 % (0.5-1.5); MetHb 0.5 % (0.0-1.5); O2Hb 95.1 % (94.0-97.0); PEEP,BG 10 cm H2O; SITE, ABG Left Radial; VT, ABG 550 mL
[2019-07-11] MEDS: HYDROXYCHLOROQUINE 200 MG TABLET PO SCH (09:38)
[2019-07-11] MEDS: methylPREDNISolone SOD SUCC 40 MG/ML VIAL IV SCH (12:30)
[2019-07-11] MEDS ORDERED: methylPREDNISolone SOD SUCC 40 MG/ML VIAL IV ONE (12:30)
[2019-07-11] MEDS: MEROPENEM 1 G in IV NS 0.9% 100 ML IV SCH ×2 (12:30→22:48)
[2019-07-11 18:09] LABS: ABG BASE EXCESS -8.4 mmol/L; ABG OXYGEN SATURATION 96.3 % (92.0-98.5); ABG PCO2 33.3 mmHg (35.0-45.0); ABG PH 7.316 (7.350-7.450); COHb 0.7 % (0.5-1.5); MetHb 0.5 % (0.0-1.5); O2Hb 95.1 % (94.0-97.0); PEEP,BG 8 cm H2O; SITE, ABG Right Radial; VT, ABG 550 mL
--- NOTE | 2019-07-11 19:24 | NUR ---
END OF SHIFT NOTE: NO SIGNIFICANT EVENTS THIS SHIFT. NO SEDATION VACATION D/T INSTABILITY PER DR. GARNICA. ROBYN-SYNEPHRINE CURRENTLY AT 0.9 MCG/KG/MIN, PROPOFOL AT 15 MCG/KG/MIN. PT CHECKED ON HOURLY AND PRN BY NURSING STAFF.
--- NOTE | 2019-07-11 19:45 | NUR ---
ICU/MARKET RESEARCH INTERVIEWER REPORT RECEIVED FROM THE TO DAY NURSE. SEE FLOWSHEET FOR ASSESSMENT. SKIN ISSUES ARE ADDRESSED ALONG WITH INTERVENTIONS ON FLOWSHEET. PT IS ON SEDATION AT THIS TIME DUE TO INTUBATION. PT IS ORALLY INTUBATED WITH SATURATION AT 100%. PT HAS LEFT UPPER CHEST WALL CHEST TUBE. WILL MONITOR THIS PT. PT TURNED AND REPOSITIONED FOR COMFORT AND CARE. PT IS ON ROBYN FOR LOW BP AND INCREASED HEART RATE.
--- NOTE | 2019-07-11 21:00 | NUR ---
ICU/DOCTOR PODIATRIC MEDICINE SON KAIDEN ZELAYA [phone] CALLED GAVE UPDATE.
--- NOTE | 2019-07-11 22:10 | NUR ---
ICU/MOVIE THEATER USHER PT WAS GIVEN PM CARE, ALONG WITH ORAL CARE. PT TOLERATED THIS WELL. REMAINS ON CURRENT VENT SETTINGS WITH SATURATION AT 94-96%. PT WAS TURNED AND REPOSITIONED FOR COMFORT AND CARE. WILL MONITOR THIS PT.
[2019-07-11] MEDS: IV NS 0.9% 1,000 ML IV PRN (22:34)
[2019-07-12] VITALS (84 sets, daily range): BP systolic 80–124; BP diastolic 51–80
[2019-07-12] MEDS: PROPOFOL 100 ML IV PRN ×2 (01:34→17:40)
--- NOTE | 2019-07-12 03:30 | NUR ---
ICU/POLISHER BRASS PT HAS SACRAL DTI, REQUIRES PICTURE EVERY 3 DAYS. THIS WAS DONE AND PLACED IN CHART. NAME WAS CUT OFF FROM PICTURE HOWEVER MR IS VISIBLE IN PICTURE. NEXT PICTURE IS 07/15/19.
[2019-07-12 04:28] LABS: BASOPHILS # (AUTO) 0.1 /CMM (0.0-0.2); BASOPHILS % (AUTO) 0.4 % (0.0-2.0); HEMATOCRIT 44 % (39-51); HEMOGLOBIN 13.8 g/dL (13.5-17.5); LYMPHOCYTES # (AUTO) 0.4 /CMM (0.8-4.8); LYMPHOCYTES % (AUTO) 1.5 % (20.0-44.0); MEAN CORPUSCULAR HGB CONC 32 g/dl (31.0-36.0); MEAN CORPUSCULAR VOLUME 102 fL (80-96); MONOCYTES # (AUTO) 1.2 /CMM (0.1-1.30); MONOCYTES % (AUTO) 4.5 % (2.0-12.0); NEUTROPHILS # (AUTO) 24.4 /CMM (1.8-8.9); NEUTROPHILS % (AUTO) 93.6 % (43.0-81.0); PLATELET COUNT (AUTO) 78 /CMM (150-450); RED BLOOD CELL COUNT(AUTO) 4.33 MIL/uL (4.5-6.0)
[2019-07-12 04:45] LABS: CALCIUM, SERUM 7.2 mg/dL (8.5-10.1); CREATININE 1.8 mg/dL (0.6-1.3); MAGNESIUM 3.4 mg/dL (1.8-2.4); PHOSPHORUS 3.9 mg/dL (2.5-4.9); POTASSIUM 6.1 mmol/L (3.5-5.1)
[2019-07-12 05:37] LABS: LYMPHOCYTES % (MANUAL) 2 % (16-48); MONOCYTES % (MANUAL) 1 % (0-11.0); NEUTROPHILS % (MANUAL) 97 (42-76)
--- NOTE | 2019-07-12 05:37 | NUR ---
ICU/BOOK REVIEWER 0530-RADIOLOGY CALLED CRITICAL RIGHT SIDE PNEUMOTHORAX 0535-CALLED MARKUS STAY ABOUT RESULTS
--- NOTE | 2019-07-12 06:36 | NUR ---
ICU/SUMMER ASSOCIATE DAUGHTER NELY ZELAYA GAVE CONSENT FOR RIGHT SIDE CHEST TUBE, HD CATH INSERTION, AND HD DUE TO HIGH POTASSIUM. DR MARKUS JEFFRIES PLACED BOTH AND TALKED TO FAMILY AND ANSWERED ALL QUESTIONS
[2019-07-12] MEDS ORDERED: LIDOCAINE HCL/MPF 1% 30 ML VIAL IJ ONE (06:47)
[2019-07-12] MEDS ORDERED: LIDOCAINE 1%-EPI 1:100,000 20 ML VIAL TP ONE (07:00)
--- NOTE | 2019-07-12 07:23 | NUR ---
ICU/STONEHAND RIGHT CHEST TUBE PLACE AND HD PLACED BY DR JEFFRIES. GAVE REPORT TO AGATHA CHAPA
[2019-07-12 09:30] LABS: ABG BASE EXCESS -7.4 mmol/L; ABG OXYGEN SATURATION 96.3 % (92.0-98.5); ABG PCO2 35.3 mmHg (35.0-45.0); ABG PO2 101.1 mmHg (75.0-100.0); AaDO2 179.6 mmHg; COHb 0.7 % (0.5-1.5); MetHb 0.5 % (0.0-1.5); O2Hb 95.1 % (94.0-97.0); PEEP,BG 8 cm H2O; SITE, ABG Right Radial; VT, ABG 550 mL
--- NOTE | 2019-07-12 09:38 | NUR ---
vent changes below per dr. ramirez: peep + 5 Addendum: 07/12/19 at 0939 by ANALILIA SALMON RT Amended: Links added.
--- NOTE | 2019-07-12 11:24 | NUR ---
DIALYSIS IS ABOUT TO START, PLATE DRILLER AT ROOM NOW. 11OO MERREM HELD TILL AFTER DIALYSIS
[2019-07-12] MEDS: PHENYLEPHRINE 100 MG in IV NS 0.9% 240 ML IV PRN ×2 (14:04→17:42)
[2019-07-12] MEDS: MEROPENEM 1 G in IV NS 0.9% 100 ML IV SCH ×2 (14:12→22:58)
--- NOTE | 2019-07-12 19:45 | NUR ---
ICU/EXERCISER HORSE REPORT RECEIVED FROM THE TO DAY NURSE. SEE FLOWSHEET FOR ASSESSMENT. SKIN ISSUES ARE ADDRESSED ALONG WITH INTERVENTIONS ON FLOWSHEET. PT IS ON SEDATION AT THIS TIME DUE TO INTUBATION. PT IS ORALLY INTUBATED WITH SATURATION AT low 90's. PT HAS LEFT UPPER CHEST TUBE AND RIGHT CHEST TUBE WELL. WILL MONITOR THIS PT. PT TURNED AND REPOSITIONED FOR COMFORT AND CARE. PT IS ON ROBYN FOR LOW BP AND INCREASED HEART RATE. ALSO PT HAS NEW HD CATH FOR DIALYSIS.
--- NOTE | 2019-07-12 19:52 | NUR ---
END OF SHIFT NOTE: RIGHT CHEST TUBE INSERTED AT [address] MARKUS JEFFRIES, 114 ML IMMEDIATE BLOODY OUTPUT TOTAL FOR THE SHIFT WAS 154 ML. LEFT CHEST TUBE HAD 30ML OUT THIS SHIFT. RIGHT FEMORAL DIALYSIS CATHETER ALSO INSERTED THIS AM BY DR. MARKUS JEFFRIES. PT HAD FIRST DIALYSIS TODAY ENDING AT 1400. NO OUTPUT FROM DIALYSIS, JUST FILTER. ROBYN-SYNEPHRINE CURRENTLY INFUSING AT 2.6 MCG/KG/MIN, PROPOFOL INFUSING AT 15MCG/KG/MIN. TOTAL URINE OUTPUT FOR SHIFT WAS 720ML. TYPE AND SCREEN WAS DRAWN FOR PATIENT FOR PENDING CONVALESCENT PLASMA DONATION FROM PATIENTS DAUGHTER NELY. POTENTIAL PLASMA DONATION IS TO BE COORDINATED BY THE RED CROSS. CHARGE NURSE LAUREANO WILL FOLLOW UP IN THE AM WITH BLOOD BANK. PT CHECKED ON HOURLY AND PRN BY NURSING STAFF.
--- NOTE | 2019-07-12 22:10 | NUR ---
ICU/LIFT MANAGER SPOKE TO FAMILY BOTH SON ASHLY AND DAUGHTER NELY ABOUT FATHER, UPDATES AND TODAY'S HAPPENINGS WITH RIGHT SIDE PNEUMOTHORAX AND NEW HD CATH. SPENT ABOUT 40 MINUTES WITH FAMILY MEMBERS.
[2019-07-12] MEDS: IV NS 0.9% 1,000 ML IV PRN (22:56)
[2019-07-13] VITALS (110 sets, daily range): BP systolic 62–169; BP diastolic 36–88
--- NOTE | 2019-07-13 00:10 | NUR ---
ICU/CULVERT INSTALLER PT WAS GIVEN PM CARE, ALONG WITH ORAL CARE. PT TOLERATED THIS WELL. REMAINS ON CURRENT VENT SETTINGS WITH SATURATION AT 98%. PT WAS TURNED AND REPOSITIONED FOR COMFORT AND CARE. WILL MONITOR THIS PT.
[2019-07-13] MEDS ORDERED: PHENYLEPHRINE 10 MG/ML VIAL ONE (02:05)
[2019-07-13] MEDS: PROPOFOL 100 ML IV PRN (03:21)
[2019-07-13] MEDS: PHENYLEPHRINE 100 MG in IV NS 0.9% 240 ML IV PRN ×3 (03:22→23:55)
[2019-07-13 04:34] LABS: BASOPHILS # (AUTO) 0.1 /CMM (0.0-0.2); BASOPHILS % (AUTO) 0.4 % (0.0-2.0); HEMATOCRIT 38 % (39-51); HEMOGLOBIN 12.6 g/dL (13.5-17.5); LYMPHOCYTES # (AUTO) 0.6 /CMM (0.8-4.8); LYMPHOCYTES % (AUTO) 2.2 % (20.0-44.0); MEAN CORPUSCULAR HGB CONC 33 g/dl (31.0-36.0); MEAN CORPUSCULAR VOLUME 100 fL (80-96); MONOCYTES # (AUTO) 1.1 /CMM (0.1-1.30); MONOCYTES % (AUTO) 3.8 % (2.0-12.0); NEUTROPHILS # (AUTO) 25.9 /CMM (1.8-8.9); NEUTROPHILS % (AUTO) 93.6 % (43.0-81.0); PLATELET COUNT (AUTO) 53 /CMM (150-450); RED BLOOD CELL COUNT(AUTO) 3.83 MIL/uL (4.5-6.0); WHITE BLOOD COUNT (AUTO) 27.7 K/uL (4.3-11.0)
[2019-07-13 04:46] LABS: CALCIUM, SERUM 7.1 mg/dL (8.5-10.1); CREATININE 1.5 mg/dL (0.6-1.3); POTASSIUM 5.4 mmol/L (3.5-5.1)
[2019-07-13 05:10] LABS: LYMPHOCYTES % (MANUAL) 2 % (16-48); MONOCYTES % (MANUAL) 4 % (0-11.0); NEUTROPHILS % (MANUAL) 94 (42-76)
--- NOTE | 2019-07-13 05:30 | NUR ---
ICU/TUNNELING MACHINE OPERATOR DAUGHTER NELY CALLED [phone] WAS COVID POSITIVE HOWEVER IS NOW RECOVERED WITH 2 CONSECUTIVE NEGATIVE TEST NOW, WANTS TO DONATE PLASMA. SHE CONTACTED [facility] [employer], WHO HAS CONTACTED HER TO HELP IN THIS PROCESS. IS WHO TO EMAIL HOWEVER IT'S TO BE CC TO & [email or web address] MARKUS DEB WAS CONTACTED AND SAID HE WOULD EMAIL THE PLASMA EMAIL BEFORE HE LEFT HIS SHIFT TODAY. NELY WAS NOTIFIED OF THIS REPLY.
[2019-07-13 06:07] LABS: ABG BASE EXCESS -4.5 mmol/L; ABG OXYGEN SATURATION 95.4 % (92.0-98.5); ABG PCO2 31.6 mmHg (35.0-45.0); ABG PH 7.401 (7.350-7.450); ABG PO2 90.1 mmHg (75.0-100.0); AaDO2 194.8 mmHg; COHb 0.3 % (0.5-1.5); MetHb 0.6 % (0.0-1.5); O2Hb 94.5 % (94.0-97.0); PEEP,BG 5 cm H2O; SITE, ABG Right Radial; VT, ABG 550 mL
--- NOTE | 2019-07-13 06:34 | NUR ---
ICU.LIFE AGENT LEFT CHEST TUBE 15ML RIGHT CHEST TUBE 75ML FOR THE 12 HOUR SHIFT
--- NOTE | 2019-07-13 06:42 | NUR ---
ICU/CYLINDER SANDER OPERATOR ABG DONE AND APPEARS BETTER THAN WHAT IS SHOWN ON THE MONITOR
--- NOTE | 2019-07-13 06:43 | NUR ---
ICU/INSPECTOR AND HAND PACKAGER WAS ABLE TO GET ROBYN DOWN TO 0.4MCG AND SEDATION 10MCG. WILL PASS THIS ON TO DAY SHIFT
--- NOTE | 2019-07-13 07:45 | NUR ---
SENIOR QUALITY TECHNICIAN: HD nurse updated with pt.current condition, VS, Labs
--- NOTE | 2019-07-13 07:50 | NUR ---
INFRASTRUCTURE ENGINEER: updated with pt.current condition, VS, pressor gtt, I/O, HD, labs, drips
--- NOTE | 2019-07-13 07:58 | NUR ---
WOUND CARE FOLLOW UP: REVIEWED NURSING DOCUMENTATION INCLUDING PHOTOS AND CHART. PT PRESENTS WITH DEEP TISSUE INJURY TO SACRUM EXTENDING TO BILATERAL BUTTOCKS WHICH IS NOW OPEN IN EVOLUTION. PT CONTINUES TO HAVE MULTIPLE CO-MORBIDITIES INCLUDING RENAL FAILURE, RESPIRATORY FAILURE, COVID 19 AND NOW HAS CHEST TUBE. RECOMMEND SURGICAL CONSULT. DR BETI FAN NOTIFIED OF CONSULT REQUEST. RECOMMENDATIONS MADE FOR WOUND CARE AND SKIN PROTECTION. DISCUSSED WITH NURSING STAFF. MD IN AGREEMENT WITH PLAN OF CARE.
--- NOTE | 2019-07-13 08:30 | NUR ---
AUTOMOTIVE ELECTRICAL FITTER: PICC rios lumen is occluded
--- NOTE | 2019-07-13 08:40 | NUR ---
HANGERSMITH: SBP 160-169, MAP 80-85, ST, stopped Getachew gtt
[2019-07-13] MEDS: MEROPENEM 1 G in IV NS 0.9% 100 ML IV SCH ×2 (08:48→22:31)
--- NOTE | 2019-07-13 08:50 | NUR ---
TEST DEVELOPER: pt.family called, updated with pt.status, VS, orders, POC, will ask MD again re: for possible pt daughter plasma transfusion for pt.
--- NOTE | 2019-07-13 09:10 | NUR ---
WINDOWS DESKTOP ENGINEER: pt.is sedated with 10 mcg/kg/m Diprivan, on wrists restraints, no any activity, R.4mm/L.3mm pupils, unable to check light reaction now/isolation room, no cough/gag reflex, no reaction by pain stimuli, O2sat. 92-94%, no SOB, suctioned well, ST 120-135/getting HD, B.CTs: secured, patent, dressings: intact, still air leak, S/S drain, [id number], warmed blanket, updated with all above
--- NOTE | 2019-07-13 09:15 | NUR ---
MARKETING CONTENT SPECIALIST: sent message to with convalscentplasma contacts
--- NOTE | 2019-07-13 09:40 | NUR ---
FOOTBALL COACH: pt is getting HD, SBP dropped to 70-80, ST, max Getachew gtt dose, called to pharmacy for Levophed bag
[2019-07-13] MEDS: NOREPINEPHRINE 8 MG in IV NS 0.9% 242 ML IV PRN ×3 (09:58→23:55)
--- NOTE | 2019-07-13 10:30 | NUR ---
FURNITURE FABRICATOR: HD done/400ml out, on Levo, Getachew gtts now, will titrate to keep SBP over 90, ST 120-130, O2sat. over 94%, sedation is off, no cough reflex, no pain stimuli reaction, same pupils/no reaction by room lights, updated/said: keep sedation off, charge nurse, gelatin plant supervisor spoke by conference call: amadeo has to give permission/protocol for possible plasma transfusion
--- NOTE | 2019-07-13 11:30 | NUR ---
AUTOMOTIVE TIRE TESTER: for possible daughter plasma transfusion to pt. process is still in process, spoke with , for benefits/risks pt.is unstable and needs to be protective from transfusion side effects, THERESA Brooks updated also/spoke with , pt.daughter called/got phone# for possible [facility] coordination with [facility]
--- NOTE | 2019-07-13 11:50 | NUR ---
BUILDING CERTIFIER: got from pharmacy [facility], ILYA confirmed: for HD nurse, who will come back
[2019-07-13] MEDS ORDERED: ALTEPLASE CATHFLO 2 MG/VIAL IV ONE (12:00)
[2019-07-13] MEDS: ACETAMINOPHEN 650 MG/20.3 ML UDC NG PRN (14:22)
--- NOTE | 2019-07-13 16:17 | NUR ---
BULK FOLDER: pt.pupils reaction: very sluggish, R.3mm/L.2mm, able to blink, no activity reaction by pain stimuli, removed restraints, no cough reflex, no any grimacing, ST 120-125, still on [place], Levo gtts, continue titrate, suctioned well, O2sat. over 94%, no SOB/distress, CTs: patent, secured, S/S drain+, makes urine, T 101.0/Tylenol given, PM/skin/wound care done, no calls re convalescent plasma possible process, pt.son called/updated
--- NOTE | 2019-07-13 19:45 | NUR ---
ICU/ROUGH RICE GRADER REPORT RECEIVED FROM THE TO DAY NURSE. SEE FLOWSHEET FOR ASSESSMENT. SKIN ISSUES ARE ADDRESSED ALONG WITH INTERVENTIONS ON FLOWSHEET. PT IS ON SEDATION AT THIS TIME DUE TO INTUBATION. PT IS ORALLY INTUBATED WITH SATURATION AT 100's. PT HAS LEFT UPPER CHEST TUBE AND RIGHT CHEST TUBE WELL. WILL MONITOR THIS PT. PT TURNED AND REPOSITIONED FOR COMFORT AND CARE. PT IS ON ROBYN AND LEVO FOR LOW BP. PT HAS NEW HD CATH FOR DIALYSIS.
--- NOTE | 2019-07-13 21:00 | NUR ---
ICU/HEALTHCARE ASSOCIATE SPOKE TO FAMILY ABOUT COMFORT CARE, PT IS ON 2 PRESSORS TO SUPPORT BP. FAMILY SAID THEY WOULD TALK IT OVER.
--- NOTE | 2019-07-13 22:30 | NUR ---
ICU/SUPERINTENDENT FACTORY SPOKE TO FAMILY AGAIN ABOUT MORE IN DEPTH ABOUT PT'S CONDITION, AND COMFORT CARE. SAID THEY WOULD THINK ABOUT THIS.
[2019-07-14] VITALS (13 sets, daily range): BP systolic 64–189; BP diastolic 37–111
--- NOTE | 2019-07-14 00:10 | NUR ---
ICU/MINING MACHINERY ASSEMBLER PT'S BLOOD PRESSURE IS NOT STABLE CHARGE NURSE HAD TO INCREASE LEVO DUE TO ROBYN MAX OUT. WILL MONITOR THIS PT.
[2019-07-14] MEDS: IV NS 0.9% 1,000 ML IV PRN (00:33)
--- NOTE | 2019-07-14 01:30 | NUR ---
ICU/MOTOR EQUIPMENT LIEUTENANT ROBYN MAXED OUT AND LEVO IS MAXED OUT, CHARGE NURSE AWARE DIFFICULT TO GET BP. CALLED FOR THIRD PRESSOR.
[2019-07-14] MEDS ORDERED: VASOPRESSIN INJ 20 UNIT/ML VIAL ONE (02:53)
[2019-07-14] MEDS: NOREPINEPHRINE 8 MG in IV NS 0.9% 242 ML IV PRN ×3 (02:54→05:58)
[2019-07-14] MEDS ORDERED: VASOPRESSIN INJ 40 UNIT in IV NS 0.9% 38 ML IV PRN (03:00)
--- NOTE | 2019-07-14 03:00 | NUR ---
ICU/EXPERIMENTAL OUTBOARD MOTORS MECHANIC PT STARTED ON THIRD PRESSOR AND ALSO GIVEN ORDER FOR BOLUS X2 500ML BY DR JEFFRIES
--- NOTE | 2019-07-14 03:00 | NUR ---
LICENSED EMBALMER LEVOPHED & PHENYLEPHRINE DRIPS RATE MAX. PT IS IN SEVERE HYPOTENSION. MARKUS JEFFRIES, CHAMPION OF SUSTAINABLE DESIGN WAS NOTIFIED. STARTED 3-RD PRESSOR-VASOPRESSIN. RATE ALSO MAX. PT IS COMATOSE, DOES NOT RESPONSE TO ANY STIMULI. NO GAG OR CORNEAL REFLEXES. TANK TRUCK OPERATOR ED MIKEY TALKED TO FAMILY, UPDATED PT'S CONDITION. FAMILY DECIDED TO CHANGE CODE STATUS TO DNR. PT REMAINS VERY UNSTABLE.
--- NOTE | 2019-07-14 04:00 | NUR ---
ICU/[facility] SPECIALIST BOLUS X1 GIVEN, CHARGE TALKED TO FAMILY ABOUT CODE STATUS
[2019-07-14] MEDS ORDERED: NOREPINEPHRINE 4 MG/4 ML AMPUL IV ONE (04:03)
[2019-07-14] MEDS ORDERED: IV NS 0.9% 500 ML IV ONE ×2 (04:30→05:30)
--- NOTE | 2019-07-14 06:30 | NUR ---
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
--- NOTE | 2019-07-14 06:31 | NUR ---
RT NOTE PATIENT FOUND ON MECHANICAL VENT WITH ORDERED SETTINGS. ALARMS ON AND AUDIBLE. VENT PLUGGED IN TO THE RED OUTLET. AMBU BAG BY THE BEDSIDE. SX MOD THICK PALE YELLOW BROWN SECRETIONS. PT IS DNR. NO RESP DISTRESS AT THIS TIME. WILL CONTINUE TO MONITOR CLOSELY.
--- NOTE | 2019-07-14 07:35 | NUR ---
PRIMARY HEALTH ORGANISATION MANAGER: pt.is without sedation, no pain stimuli reaction, no pupils reaction/ R.4mm/L.3mm, no cough reflex by suction, SR 80-85 on monitor, on max of Levophed, [place]w, Vasopressin doses gtts, unable to get BP monitoring during last 1.5 hrs, RR 26 continuously, 2 CTs airleak+, T96.7, DNR status, family was updated with pt.status recently by night nurse
--- NOTE | 2019-07-14 07:57 | NUR ---
REFINER OPERATOR: asystolic/isoline on monitor, unable to get BP, no pulse by palpation, O2sat. 46%, no any reflexes, RT is in room, pronounced , will notify , family
--- NOTE | 2019-07-14 08:15 | NUR ---
GO CART MECHANIC: , charge nurse, family were notified
--- NOTE | 2019-07-14 08:45 | NUR ---
FIXER SUPERVISOR: notified [facility]: release the body, case# is in chart
[2019-07-14] MEDS ORDERED: HYDROCORTISONE SOD SUCCINATE 100 MG/2 ML VIAL IV SCH (09:00)
--- NOTE | 2019-07-14 10:40 | NUR ---
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 Before by report [facility] confirmed: release the body
== END 2019-07-14 07:59 | disposition expired | DRG 870 ==
LOC: ER 20:30 → ICU 22:16
PROVIDERS: ADMIT Nurse Practitioner Acute Care; ATTEND Student in an Organized Health Care Education/Training Program
PROC: 5A1955Z Respiratory Ventilation, Greater than 96 Consecutive Hours (ICD-10-PCS; principal; 2019-07-06)
PROC: 0BH17EZ Insertion of Endotracheal Airway into Trachea, Via Natural or Artificial Opening (ICD-10-PCS; 2019-07-06)
PROC: 02HV33Z Insertion of Infusion Device into Superior Vena Cava, Percutaneous Approach (ICD-10-PCS; 2019-07-09)
PROC: B548ZZA Ultrasonography of Superior Vena Cava, Guidance (ICD-10-PCS; 2019-07-09)
PROC: 5A1D70Z Performance of Urinary Filtration, Intermittent, Less than 6 Hours Per Day (ICD-10-PCS; 2019-07-12)
PROC: 06HY33Z Insertion of Infusion Device into Lower Vein, Percutaneous Approach (ICD-10-PCS; 2019-07-12)
PROC: 0W9930Z Drainage of Right Pleural Cavity with Drainage Device, Percutaneous Approach (ICD-10-PCS; 2019-07-12)
DX: A41.9 Sepsis, unspecified organism (principal); J96.01 Acute respiratory failure with hypoxia; N17.0 Acute kidney failure with tubular necrosis; U07.1 COVID-19; I21.A1 Myocardial infarction type 2; J12.89 Other viral pneumonia; R65.21 Severe sepsis with septic shock; K72.00 Acute and subacute hepatic failure without coma; E87.2 Acidosis; G93.40 Encephalopathy, unspecified; E87.0 Hyperosmolality and hypernatremia; J93.9 Pneumothorax, unspecified; Z66 Do not resuscitate; R65.20 Severe sepsis without septic shock; I10 Essential (primary) hypertension; E78.5 Hyperlipidemia, unspecified; I48.91 Unspecified atrial fibrillation; E78.1 Pure hyperglyceridemia; D69.6 Thrombocytopenia, unspecified; D64.9 Anemia, unspecified; E87.5 Hyperkalemia; T38.0X5A Adverse effect of glucocorticoids and synthetic analogues, initial encounter; J43.9 Emphysema, unspecified; Z83.3 Family history of diabetes mellitus; L89.156 Pressure-induced deep tissue damage of sacral region
CPT/HCPCS: 31720; 32551; 36415; 36569; 36600; 70450-TC; 71045-TC; 71250-TC; 76705-TC; 80048-TC; 80053-TC; 80061-TC; 80076-TC; 81000-TC; 82272-TC; 82570-TC; 82728-TC; 82803-TC; 82962-TC; 83605-TC; 83615-TC; 83735-TC; 84100-TC; 84155-TC; 84300-TC; 84443-TC; 84478-TC; 84484-TC; 85025-TC; 85378-TC; 85730-TC; 86140-TC; 86480; 86706; 86803; 86850-TC; 87040-TC; 87070-TC; 87081-TC; 87086-TC; 87340; 87806; 90935-TC; 93307-TC; 94002-TC; 94003-TC; 94760-TC; 99082-TC; A4216; A6253; A6403; C1750; C1751; G0378; J0456; J0696; J1160; J1940; J2185; J2370; J2704; J2920; J2997; J3262; J3490; J7030; J7040; J7050; J7060